=== PATIENT | female | born 1950 | race Caucasian/White ===

== ENCOUNTER → 2016-11-29 | Outpatient (CLI) | payer MEDICARE ==
--- NOTE | 2016-11-29 11:38 | BD ---
EXAMINATION TYPE: MG DEXA axial skeleton. DATE OF EXAM: 11/29/2016 10:26 AM COMPARISON: NONE CLINICAL HISTORY: S32.9XXD FX PARTS OF L/S SPINE AND PELVIS Height: 65.5 Weight: 202 FRAX RISK QUESTIONS: Alcohol (3 or more units per day): NO Family History (Parent hip fracture): YES BUTH NO BREAKS Glucocorticoids (More than 3mos): NO (Ex: prednisone, prednisolone, methylprednisolone, dexamethasone, and hydrocortisone). History of Fracture in Adulthood: YES Secondary Osteoporosis: NO 1. Type 1 Diabetes: NO 2. Hyperthyroidism: NO 3. Menopause before 45: NO 4. Malnutrition: NO 5. Chronic liver disease: FATTY LIVER Rheumatoid Arthritis: NO Current Tobacco Use: NO RISK FACTORS HISTORY OF: Hip Fracture (Right/Left): NO , BUT RT HIP REPLACEMENT Spine Fracture: LUMBAR, WITH SCREWS AND PLATES When: 1998 Surgery to Spine/Hip(right)/ TOTAL RT HIP AND LUMBAR SPINE SURG When: 2013 AND 1998 Other Fractures since Age 50: YES HER PELVIS, COMP FX THORACIC SPINE When: LAST YR AND FEW YRS AGO Family History of Osteoporosis: YES HER MOTHER, BUT NO BROKEN HIP Smoke tobacco: NO Drink Alcohol: RARELY Active: NO, CANNOT Diet low in dairy products/other sources of calcium: YES Postmenopausal woman: YES AT AGE 47 Lost more than 2 inches in height since high school: YES Frequent falls: USING CANE UNSTEADY Adrenal Insufficiency: NO MEDICATIONS: Thyroid Medications: YES Which medication: SYNTHROID How Lon YRS Additional Medications: BP MEDS, CELEXA, CALCIUM AND VIT D Additional History: TOTAL RT HIP, SCREWS AND PLATES IN LUMBAR SPINE....BROKEN PELVIS LAST YR EXAM MEASUREMENTS: Bone mineral densitometry was performed using the [employer] System. LUMBAR SPINE SURG...WITH SCREWS AND PLATES....COMPRESSION FX OF THORACIC AND LUMBAR SPINE Bone mineral density about the R hip (g/cm2): TOTAL HIP REPLACEMENT Bone mineral density about the L hip (g/cm2): 0.991 T Score values are as follows: -----L Neck: -1.8 -----L Total: -0.1 Bone mineral density FIRST BONE DENSITY SCAN FOR HER AT [facility] FRAX %'S: 15.6% CHANCE OF A MAJOR OSTEOPOROTIC FX AND 2.1% CHANCE OF A HIP FX......PROBABILITY OF FX IN 10 YRS TIME IMPRESSION: Osteopenia (T Score between -2.5 and -1 as noted by T score values There is slightly increased risk of fracture and the patient may be considered for treatment. Re-Screen 2-5 years. FOR HER LT HIP NOTE: T-SCORE=SD OF THE YOUNG ADULT MEAN.
== END | disposition home or self-care (01) ==
LOC: RADBDWWP 09:58
PROVIDERS: ATTEND Family Medicine
DX: M85.80 Other specified disorders of bone density and structure, unspecified site (principal); S32.9XXD Fracture of unspecified parts of lumbosacral spine and pelvis, subsequent encounter for fracture with routine healing; X58.XXXD Exposure to other specified factors, subsequent encounter
CPT/HCPCS: 77080

== ENCOUNTER 2017-01-05 07:39 | Day surgery (SDC) | payer MEDICARE ==
--- NOTE | 2016-12-23 19:55 | HP ---
DATE OF ADMISSION: 01/05/2017 CHIEF COMPLAINT: Chronic abdominal wound. HISTORY OF PRESENT ILLNESS: The patient is a 66-year-old female who is known to our service. She underwent a subtotal colectomy in January of 2016. Postoperatively the patient had a hematoma along the midline incision. This required incision and drainage. The patient unfortunately since that time has been dealing with a wound that has been very slow to heal. She was recently seen in the wound care center by Dr. Alcala. He and I have discussed her case and decided to proceed with excision/exploration of the wound with attempts at primary closure. PAST MEDICAL HISTORY: 1. Colonic polyposis. 2. Hyperlipidemia. 3. Hypertension. 4. Obesity. 5. Arthritis. 6. CVA. PAST SURGICAL HISTORY: 1. Hip. 2. Ulcer. 3. Back. 4. Rotator cuff. 5. Hysterectomy. 6. Colectomy. MEDICATIONS: See list. ALLERGIES: 1. PENICILLIN. 2. DEMEROL. 3. BETADINE SCRUB. PHYSICAL EXAM: HEENT is normocephalic. CHEST: No deformities. ABDOMEN: Soft, nontender, nondistended. Midline wound measuring 6 x 6 mm with a depth of 14 mm in the lower midline, minimally tender. EXTREMITIES: Without edema. IMPRESSION: A 66-year-old female with midline abdominal wound. PLAN: Will proceed with excision of abdominal wall wound and primary closure on 01/05. Risks of bleeding, infection, recurrence, poor healing, possible need for opening of the wound with subsequent wound V.A.C. placement were discussed. The patient understands and wishes to proceed.
[2017-01-03 12:38] VITALS: BMI 30.4
[~2017-01-05 07:39] MED LIST: HEPARIN SODIUM,PORCINE 5,000 UNIT/ML 1 ML VIAL SQ ONE; LACTATED RINGERS 1,000 ML IV SCH; LIDOCAINE 1% 20 ML VIAL (10MG/ML) FOR IV START INTRADERMA PRN; ONDANSETRON 4 MG/2 ML VIAL IVP ONE; Pre Op ABX Message 1 EACH MISC MISCELLANE ONE; fentaNYL (PF) 50 MCG/ML 2 ML AMP IV PRN
[2017-01-05 08:42] VITALS: RESP 16; TEMP 98.4
[2017-01-05] MEDS ORDERED: fentaNYL (PF) 50 MCG/ML 2 ML AMP ONE (10:22)
[2017-01-05] MEDS ORDERED: SUCCINYLCHOLINE CHLORIDE 100 MG/5 ML SYR IV ONE (10:22)
[2017-01-05] MEDS ORDERED: GLYCOPYRROLATE 0.2 MG/ML 2 ML VIAL ONE (10:22)
[2017-01-05] MEDS ORDERED: MIDAZOLAM 2 MG/2 ML VIAL ONE (10:22)
[2017-01-05] MEDS ORDERED: KETAMINE 10 MG/ML 20 ML VIAL ONE (10:22)
[2017-01-05] MEDS ORDERED: SODIUM CHLORIDE 0.9% 50 ML with ceFAZolin 2,000 MG IV ONE ×2 (10:34)
[2017-01-05] MEDS ORDERED: BUPIVACAIN-EPI 0.25%-1:200,000 30 ML VIAL SQ ONE (10:40)
[2017-01-05] MEDS ORDERED: NALOXONE 0.4 MG/ML 1 ML VIAL IV PRN (10:52)
--- NOTE | 2017-01-05 10:57 | P.PCN ---
Date of Procedure: 01/05/17 Preoperative Diagnosis: Postoperative Diagnosis: Procedure(s) Performed: PREOPERATIVE DIAGNOSIS: Abdominal wall wound POSTOPERATIVE DIAGNOSIS: Same PROCEDURE: Excision SURGEON: Desmond EBL: Rob ANESTHESIA: Mac COMPLICATIONS: None OPERATIVE PROCEDURE: Patient was placed on the operative table in the supine position. The patient's abdomen was prepped and draped in the usual sterile fashion. An elliptical incision was made around the wound in the lower abdomen. This wound measured 7 x 7 mm with a depth of 1.5 cm. The excision through the subcutaneous fat took place sharply and I had a probe within the wound itself so I was able to drum maker the depth of the wound that way. They scar tissue beneath the wound was excised. I was not able to visualize any foreign bodies. The area was irrigated. The subcutaneous fat was closed using 3-0 Vicryl sutures and the skin was closed using 4-0 Monocryl sutures. Dermabond was then applied. DISPOSITION: Stable to recovery room Implants: Indications for Procedure: Operative Findings: Description of Procedure:
[2017-01-05 11:33] VITALS: BP 124/69; PULSE 65
== END 2017-01-05 13:51 | disposition home or self-care (01) ==
LOC: OR 07:39
PROVIDERS: ATTEND Surgery
DX: T81.89XA Other complications of procedures, not elsewhere classified, initial encounter (principal); E78.5 Hyperlipidemia, unspecified; I10 Essential (primary) hypertension; E66.9 Obesity, unspecified; Z68.30 Body mass index [BMI] 30.0-30.9, adult; E07.9 Disorder of thyroid, unspecified; M19.90 Unspecified osteoarthritis, unspecified site; Z86.73 Personal history of transient ischemic attack (TIA), and cerebral infarction without residual deficits; Z90.710 Acquired absence of both cervix and uterus; Z88.5 Allergy status to narcotic agent; Z88.0 Allergy status to penicillin; Z88.8 Allergy status to other drugs, medicaments and biological substances; Y83.8 Other surgical procedures as the cause of abnormal reaction of the patient, or of later complication, without mention of misadventure at the time of the procedure
CPT/HCPCS: 11042; 88304; J2250; J1644; J2405; J3010; J0690; J0330

== ENCOUNTER → 2017-07-28 | Outpatient (CLI) | payer MEDICARE ==
--- NOTE | 2017-07-29 11:18 | MM ---
Reason for exam: screening (asymptomatic). Last mammogram was performed 1 year and 2 months ago. History: Patient is postmenopausal and is nulliparous. Family history of breast cancer in maternal aunt. Benign MG stereo VAD BX LT of the left breast, March 14, 2015. Took hormonal contraceptives for 7 years. Took estrogen for 3 years. Took progesterone for 3 years. Physical Findings: A clinical breast exam by your physician is recommended on an annual basis and results should be correlated with mammographic findings. MG Screening Mammo w CAD Bilateral CC and MLO view(s) were taken. Prior study comparison: June 07, 2016, bilateral MG diagnostic mammo w CAD [facility]. September 04, 2015, left breast MG 3d diag mammo w/cad LT. The breast tissue is heterogeneously dense. This may lower the sensitivity of mammography. Stable benign calcifications. No significant changes when compared with prior studies. ASSESSMENT: Benign, BI-RAD 2 RECOMMENDATION: Routine screening mammogram of both breasts in 1 year.
== END | disposition home or self-care (01) ==
LOC: RADMAMWWP 13:17
PROVIDERS: ATTEND Family Medicine
DX: Z12.31 Encounter for screening mammogram for malignant neoplasm of breast (principal)
CPT/HCPCS: 77067

== ENCOUNTER → 2018-06-12 | Outpatient (CLI) | payer MEDICARE ==
[2018-06-12 10:43] LABS: HCT 33.7 % (34.0-46.0); HGB 10.8 gm/dL (11.4-16.0); Hypochromasia Slight; MCH 26.8 pg (25.0-35.0); MCV 83.7 fL (80.0-100.0); Mean Platelet Volume 6.5; Platelet Count 241 k/uL (150-450); RBC 4.03 m/uL (3.80-5.40); WBC 6.3 k/uL (3.8-10.6)
[2018-06-12 10:55] LABS: Anion Gap 8 mmol/L; Blood Urea Nitrogen 19 mg/dL (7-17); Carbon Dioxide 29 mmol/L (22-30); Chloride 104 mmol/L (98-107); Glucose 97 mg/dL (74-99); Potassium 5.2 mmol/L (3.5-5.1); Sodium 141 mmol/L (137-145)
== END | disposition home or self-care (01) ==
LOC: LABPAT 09:39
PROVIDERS: ATTEND Internal Medicine Interventional Cardiology
DX: Z01.812 Encounter for preprocedural laboratory examination (principal); E78.2 Mixed hyperlipidemia; I10 Essential (primary) hypertension; R06.02 Shortness of breath
CPT/HCPCS: 36415; 80051; 82565; 82947; 83735; 84520; 85027

== ENCOUNTER 2018-06-20 07:56 | Day surgery (SDC) | payer MEDICARE ==
[2018-06-12 14:46] VITALS: BMI 33.3
[~2018-06-20 07:56] MED LIST changes: +ALPRAZolam 0.25 MG TAB PO PRN; +ALPRAZolam 0.5 MG TAB PO PRN; +ASPIRIN 325 MG TAB PO ONE; +ATORVASTATIN 80 MG TAB PO ONE; -HEPARIN SODIUM,PORCINE 5,000 UNIT/ML 1 ML VIAL SQ ONE; -LACTATED RINGERS 1,000 ML IV SCH; -LIDOCAINE 1% 20 ML VIAL (10MG/ML) FOR IV START INTRADERMA PRN; +NITROGLYCERIN SL TABS 0.4 MG TAB SUBLINGUAL PRN; -ONDANSETRON 4 MG/2 ML VIAL IVP ONE; -Pre Op ABX Message 1 EACH MISC MISCELLANE ONE; +SODIUM CHLORIDE 0.9% 1,000 ML in EMPTY BAG 1 BAG IV ONE; -fentaNYL (PF) 50 MCG/ML 2 ML AMP IV PRN
[2018-06-20 08:56] VITALS: TEMP 98.8
[2018-06-20] MEDS ORDERED: LIDOCAINE 1% INJ 10MG/ML (20 ML MDV) ONE (09:40)
[2018-06-20] MEDS ORDERED: fentaNYL (PF) 50 MCG/ML 2 ML AMP ONE (09:42)
[2018-06-20] MEDS ORDERED: fentaNYL (PF) 50 MCG/ML 2 ML AMP IV ONE (09:51)
[2018-06-20] MEDS ORDERED: MIDAZOLAM 2 MG/2 ML VIAL ONE (09:55)
[2018-06-20] MEDS ORDERED: LIDOCAINE 1% INJ 10MG/ML (20 ML MDV) SQ ONE ×2 (09:55→09:57)
[2018-06-20] MEDS ORDERED: MIDAZOLAM 2 MG/2 ML VIAL IV ONE (09:56)
[2018-06-20 10:19] LABS: O2 Sat Blood Gas 88.2 %
[2018-06-20 10:21] LABS: O2 Sat Blood Gas 64.4 %
[2018-06-20 10:24] LABS: O2 Sat Blood Gas 61.8 %
[2018-06-20] MEDS ORDERED: RX INFO: IV CONTRAST WAS GIVEN 1 EACH MISC MISCELLANE PRN (10:25)
[2018-06-20] MEDS ORDERED: ALPRAZolam 0.25 MG TAB PO PRN (10:26)
[2018-06-20] MEDS ORDERED: SODIUM CHLORIDE 0.9% 1,000 ML IV SCH (10:30)
--- NOTE | 2018-06-20 10:56 | CC ---
CARDIAC CATHETERIZATION REPORT INDICATION: Evaluation of right-sided pressure. Mrs. Mittal is a 68-year-old female with known history of mild to moderate coronary artery disease who has been complaining of progressive dyspnea on exertion, was found to have evidence of pulmonary hypertension, was evaluated by Dr. Grace and to further assess her status. Recommendation made regarding a right heart catheterization. The procedures, risks and complications were discussed with the patient who is in full understanding and agreement. PROCEDURE: Patient was brought to the cath lab nurse in a fasting semi-sedated state after receiving fentanyl and Benadryl and achieving moderate conscious sedated state using Xylocaine anesthesia and a Seldinger, an 8-Bulgarian sheath was introduced in the right femoral vein. Right heart catheterization was performed using [place]-Chance catheter, multiple blood pressures and samples were obtained. Cardiac output by thermodilution was calculated. Following that, a sample from the right femoral artery was performed. Following that, catheter and sheath were removed. Hemostasis was obtained with compression of the right groin. There was no immediate complication. Patient is returned to her room in stable condition. FINDINGS: HEMODYNAMICS: Pulmonary artery systolic pressure of 46, a diastolic of 21 with a mean of 28 mmHg. Pulmonary capillary wedge pressure A-wave of 16, V-wave 15 with a mean of 14 mmHg. A-wave of 16, V-wave 14 with a mean of 13 mmHg, right ventricular systolic pressure of 44 and diastolic of 14 mmHg. Pulmonary artery saturation of 64%, right atrial saturation of 62%, femoral artery saturation of 88%. Cardiac output by thermodilution of 6.7 L/minute and by Brittany 5.7 L/minute. IMPRESSION: Mild pulmonary hypertension. RECOMMENDATION: Patient will be followed with her pet care technician for further evaluation and assessment. DURATION OF PROCEDURE: 18 minutes. MMODL / IJN: [id number] /
[2018-06-20 12:21] VITALS: PULSE 52
[2018-06-20 12:58] VITALS: BP 117/56; RESP 18
[2018-06-20] MEDS ORDERED: LOVASTATIN 10 MG PO SCH (21:00)
[2018-06-20] MEDS ORDERED: BECLOMETHASONE DIP 80 MCG/PUFF INHALER INHALATION SCH (21:00)
[2018-06-20] MEDS ORDERED: MONTELUKAST 10 MG TAB PO SCH (21:00)
[2018-06-21] MEDS ORDERED: GABAPENTIN 300 MG PO SCH (08:00)
[2018-06-21] MEDS ORDERED: NON-FORMULARY DRUG (Acetaminophen [Tylenol Arthritis] 650 MG) PO SCH (09:00)
[2018-06-21] MEDS ORDERED: NON-FORMULARY DRUG (Aspirin [Adult Low Dose Aspirin Ec] 81 MG) PO SCH (09:00)
[2018-06-21] MEDS ORDERED: OMEPRAZOLE 10 MG PO SCH (09:00)
[2018-06-21] MEDS ORDERED: NON-FORMULARY DRUG (Citalopram Hydrobromide [Citalopram Hbr] 40 MG) PO SCH (09:00)
[2018-06-21] MEDS ORDERED: LISINOPRIL 10 MG TAB PO SCH (09:00)
[2018-06-21] MEDS ORDERED: NON-FORMULARY DRUG (Cholecalciferol (Vitamin D3) [Vitamin D3] 2,000 UNIT) PO SCH (09:00)
[2018-06-21] MEDS ORDERED: LEVOTHYROXINE 88 MCG TAB PO SCH (09:00)
[2018-06-21] MEDS ORDERED: NON-FORMULARY DRUG (Calcium Carbonate [Calcium] 600 MG) PO SCH (09:00)
== END 2018-06-20 14:27 | disposition home or self-care (01) ==
LOC: CATHCVL 07:56
PROVIDERS: ATTEND Internal Medicine Interventional Cardiology
DX: I27.20 Pulmonary hypertension, unspecified (principal); I25.10 Atherosclerotic heart disease of native coronary artery without angina pectoris; I10 Essential (primary) hypertension; E78.2 Mixed hyperlipidemia; Z82.49 Family history of ischemic heart disease and other diseases of the circulatory system; Z79.1 Long term (current) use of non-steroidal anti-inflammatories (NSAID); Z79.890 Hormone replacement therapy; Z79.899 Other long term (current) drug therapy; Z88.5 Allergy status to narcotic agent; Z88.0 Allergy status to penicillin; Z91.048 Other nonmedicinal substance allergy status; Z91.09 Other allergy status, other than to drugs and biological substances
CPT/HCPCS: 93451; 85018; 82810; C1769 ×2; C1894; J2250; J2001; J3010

== ENCOUNTER 2018-07-03 12:12 | Day surgery (SDC) | payer MEDICARE ==
[2018-06-29 14:09] VITALS: BMI 31.7
[~2018-07-03 12:12] MED LIST changes: -ALPRAZolam 0.25 MG TAB PO PRN; -ALPRAZolam 0.5 MG TAB PO PRN; -ASPIRIN 325 MG TAB PO ONE; -ATORVASTATIN 80 MG TAB PO ONE; +DEXAMETHASONE SOD PHOSPHATE 10 MG/ML 1 ML VIAL IV ONE; +HYDROmorphone 0.5 MG/0.5 ML SYRINGE IVP PRN; +LACTATED RINGERS 1,000 ML IV SCH; +LIDOCAINE 1% 20 ML VIAL (10MG/ML) FOR IV START INTRADERMA PRN; +MIDAZOLAM 2 MG/2 ML VIAL IV PRN; -NITROGLYCERIN SL TABS 0.4 MG TAB SUBLINGUAL PRN; +ONDANSETRON 4 MG/2 ML VIAL IVP ONE; +Pre Op ABX Message 1 EACH MISC MISCELLANE ONE; +SCOPOLAMINE 1.5MG/72HR PATCH TRANSDERM ONE; -SODIUM CHLORIDE 0.9% 1,000 ML in EMPTY BAG 1 BAG IV ONE
[2018-07-03 12:39] VITALS: TEMP 98.2
[2018-07-03] MEDS ORDERED: PROPOFOL 10 MG/ML 20 ML VIAL IV ONE (13:39)
[2018-07-03] MEDS ORDERED: MIDAZOLAM 2 MG/2 ML VIAL ONE (13:39)
[2018-07-03] MEDS ORDERED: ROPIVACAINE 5 MG/ML 30 ML VIAL MISCELLANE ONE ×2 (13:55)
[2018-07-03] MEDS ORDERED: LIDOCAINE 2% INJ 20 MG/ML SQ ONE ×2 (13:55)
[2018-07-03 14:23] VITALS: RESP 12
[2018-07-03 14:24] VITALS: BP 129/61; PULSE 51
--- NOTE | 2018-07-03 16:51 | OP ---
OPERATIVE REPORT SURGERY DATE: 07/03/2018 PREOP DIAGNOSIS: Right ring trigger finger. FINAL DIAGNOSIS: Right ring trigger finger. PROCEDURE PERFORMED: Right ring trigger finger release. GROSS PATHOLOGY: This 68-year-old woman has a history of prior right ring trigger finger with recurrence. Intraoperatively, the A1 nataliya had reformed. There was minimal fraying of the tendon which otherwise was intact. There were no signs of adhesions at the completion of the procedure. PROCEDURE IN DETAIL: A transverse incision was made in the proximal skin crease of the middle finger. Blunt dissection was taken through the subcutaneous tissue to identify the neurovascular bundles. They were kept in view and gently retracted out of harm's way while a longitudinal release of the A1 nataliya was performed. The flexor pollicis longus was examined and slight swelling was noted but the tendon was intact. The tendon was gently retracted from the wound to ensure no adhesion. The wound was then thoroughly irrigated, tourniquet released. Hemostasis was acquired and the skin was closed with 5-0 nylon suture. Soft bulky dressing applied. The patient was taken to the recovery room in satisfactory condition. MMODL / IJN: [id number] /
== END 2018-07-03 14:59 | disposition home or self-care (01) ==
LOC: OR 12:12
PROVIDERS: ATTEND Orthopaedic Surgery Hand Surgery
DX: M65.341 Trigger finger, right ring finger (principal); I10 Essential (primary) hypertension; L40.9 Psoriasis, unspecified; F32.9 Major depressive disorder, single episode, unspecified; E78.5 Hyperlipidemia, unspecified; K21.9 Gastro-esophageal reflux disease without esophagitis; E07.9 Disorder of thyroid, unspecified; G47.33 Obstructive sleep apnea (adult) (pediatric); H91.90 Unspecified hearing loss, unspecified ear; Z86.73 Personal history of transient ischemic attack (TIA), and cerebral infarction without residual deficits; Z79.899 Other long term (current) drug therapy; Z88.0 Allergy status to penicillin; Z88.5 Allergy status to narcotic agent; Z88.8 Allergy status to other drugs, medicaments and biological substances; Z82.49 Family history of ischemic heart disease and other diseases of the circulatory system; Z86.718 Personal history of other venous thrombosis and embolism; Z79.82 Long term (current) use of aspirin; Z79.51 Long term (current) use of inhaled steroids; Z79.890 Hormone replacement therapy
CPT/HCPCS: 26055; J2001; J2250; J1100; J2405; J2795; J2704

== ENCOUNTER → 2018-08-07 | Outpatient (CLI) | payer MEDICARE ==
--- NOTE | 2018-08-07 13:03 | XR ---
EXAMINATION TYPE: XR cervical spine comp DATE OF EXAM: 08/07/2018 TECHNIQUE: Frontal, lateral, oblique, swimmers, and open mouth view of the cervical spine are obtaine d. HISTORY: C56.1 Ovarian CA; C20 Rectal CA COMPARISON: None FINDINGS: The cervical spine is visualized in its entirety from C1 thru the top of T1 level, it is w ithout evidence of acute fracture or dislocation. The pre-vertebral soft tissue appears within stuart l limits. The C1-C2 articulation is within normal limits on the open mouth view. There is reversal usual cervical lordosis. Grade 1 anterolisthesis is seen of C4 on C5. Multilevel in tervertebral disc space narrowing, anterior osteophytes, endplate sclerosis and uncovertebral hypertr ophy are seen. Minimal multilevel neural foraminal narrowing is present throughout the cervical spine from C3 through C7 bilaterally. Incidentally noted atherosclerosis of the carotid arteries. IMPRESSION: 1. No acute fracture is seen in the cervical spine. 2. Reversal usual cervical lordosis, likely on a degenerative basis with moderate multilevel degenera tive disc disease of the cervical spine tilting and minimal radiographic neural foraminal narrowing f rom C3 through C7 bilaterally. Grade 1 anterolisthesis of C4 on C5 is also likely degenerative in lucio ure. 3. Incidental note of atherosclerosis of the carotid arteries. Carotid ultrasound could be performed for further evaluation.
--- NOTE | 2018-08-12 09:08 | MM ---
Reason for exam: screening (asymptomatic). Last mammogram was performed 1 year ago. History: Patient is postmenopausal and is nulliparous. Family history of breast cancer in maternal aunt. Benign MG stereo VAD BX LT of the left breast, March 14, 2015. Took hormonal contraceptives for 7 years. Took estrogen for 3 years. Took progesterone for 3 years. MG Screening Mammo w CAD Bilateral CC and MLO view(s) were taken. Prior study comparison: July 28, 2017, bilateral MG screening mammo w CAD. June 07, 2016, bilateral MG diagnostic mammo w CAD [facility]. There are scattered fibroglandular densities. There are benign-appearing bilateral breast calcifications. No suspicious abnormality. Left breast biopsy marker is noted. ASSESSMENT: Benign, BI-RAD 2 RECOMMENDATION: Routine screening mammogram of both breasts in 1 year.
== END ==
LOC: RADMAMWWP 11:48
PROVIDERS: ATTEND Family Medicine
DX: Z12.31 Encounter for screening mammogram for malignant neoplasm of breast (principal); M43.12 Spondylolisthesis, cervical region; M40.40 Postural lordosis, site unspecified
CPT/HCPCS: 72050; 77067

== ENCOUNTER → 2019-07-02 | Outpatient (CLI) | payer MEDICARE ==
[2019-07-02 14:41] LABS: Basophils % (A) 1 %; Eosinophils # (A) 0.1 k/uL (0-0.7); Eosinophils % (A) 2 %; HGB 11.8 gm/dL (11.4-16.0); Lymphocytes # (A) 1.5 k/uL (1.0-4.8); Lymphocytes % (A) 22 %; MCH 31.4 pg (25.0-35.0); MCHC 32.7 g/dL (31.0-37.0); MCV 96.1 fL (80.0-100.0); Mean Platelet Volume 7.2; Monocytes # (A) 0.6 k/uL (0-1.0); Monocytes % (A) 8 %; Neutrophils # (A) 4.5 k/uL (1.3-7.7); Neutrophils % (A) 66 %; Platelet Count 214 k/uL (150-450); RBC 3.75 m/uL (3.80-5.40); WBC 6.8 k/uL (3.8-10.6)
[2019-07-02 14:45] LABS: African American GFR (CKD) >90 (>60 ml/min/1.73 sqM); Albumin 4.2 g/dL (3.5-5.0); Anion Gap 7 mmol/L; Blood Urea Nitrogen 17 mg/dL (7-17); Calcium 9.3 mg/dL (8.4-10.2); Carbon Dioxide 25 mmol/L (22-30); Chloride 111 mmol/L (98-107); Glucose 79 mg/dL (74-99); Non-African American GFR(CKD) >90 (>60 ml/min/1.73 sqM); Potassium 4.9 mmol/L (3.5-5.1); Sodium 143 mmol/L (137-145)
[2019-07-02 14:46] LABS: Appearance,Urine Cloudy (Clear); Bilirubin,Urine Negative (Negative); Blood,Urine Moderate (Negative); Color,Urine Yellow; Glucose,Urine (UA) Negative (Negative); Ketones,Urine Negative (Negative); Leukocyte Esterase,Urine Moderate (Negative); Mucus,Urine Rare /hpf; Nitrite,Urine Negative (Negative); PH, Urine 5.5 (5.0-8.0); Protein,Urine Trace (Negative); RBC,Urine 46 /hpf (0-5); Specific Gravity,Urine 1.024 (1.001-1.035); Squamous Epithelial Cell,Urine 3 /hpf (0-4); Urobilinogen,Urine <2.0 mg/dL (<2.0); WBC,Urine 35 /hpf (0-5)
[2019-07-02 14:52] LABS: INR 0.9 (<1.2); Partial Thromboplastin Time 22.6 sec (22.0-30.0); Prothrombin Time 10.1 sec (9.0-12.0)
--- NOTE | 2019-07-02 15:06 | XR ---
EXAMINATION TYPE: XR chest 2V DATE OF EXAM: 07/02/2019 COMPARISON: NONE HISTORY: Presurgical evaluation. History of COPD. TECHNIQUE: Frontal and lateral views of the chest are obtained. FINDINGS: There is no focal air space opacity, pleural effusion, or pneumothorax seen. Platelike ate lectasis of the left midlung. The cardiac silhouette size is upper limits of normal. Surgical clips a re seen in the gastroesophageal junction. The osseous structures are intact. IMPRESSION: 1. Left midlung platelike subsegmental atelectasis. 2. Postsurgical changes at the gastroesophageal junction. 3. Cardiomediastinal silhouette is upper limits of normal in size.
== END | disposition home or self-care (01) ==
LOC: LABPAT 13:40
PROVIDERS: ATTEND Orthopaedic Surgery Orthopaedic Surgery of the Spine
DX: Z01.812 Encounter for preprocedural laboratory examination (principal); Z01.818 Encounter for other preprocedural examination; M47.812 Spondylosis without myelopathy or radiculopathy, cervical region; Z79.01 Long term (current) use of anticoagulants
CPT/HCPCS: 36415; 71046; 80048; 81001; 82040; 85025; 85610; 85730; 86850; 86900; 86901; 93005

== ENCOUNTER → 2019-07-06 | Outpatient (CLI) | payer MEDICARE ==
[2019-07-06 13:24] LABS: Appearance,Urine Clear (Clear); Bilirubin,Urine Negative (Negative); Blood,Urine Small (Negative); Color,Urine Yellow; Glucose,Urine (UA) Negative (Negative); Hyaline Casts,Urine 1 /lpf (0-2); Ketones,Urine Negative (Negative); Leukocyte Esterase,Urine Moderate (Negative); Nitrite,Urine Negative (Negative); PH, Urine 5.5 (5.0-8.0); Protein,Urine Negative (Negative); RBC,Urine 5 /hpf (0-5); Specific Gravity,Urine 1.008 (1.001-1.035); Squamous Epithelial Cell,Urine <1 /hpf (0-4); Urobilinogen,Urine <2.0 mg/dL (<2.0); WBC,Urine 15 /hpf (0-5)
== END | disposition home or self-care (01) ==
LOC: LABWHC1 10:15
PROVIDERS: ATTEND Family Medicine
DX: R31.9 Hematuria, unspecified (principal)
CPT/HCPCS: 81001

== ENCOUNTER → 2020-08-27 | Outpatient (CLI) | payer MEDICARE ==
--- NOTE | 2020-08-27 15:54 | CT ---
EXAMINATION TYPE: CT wrist LT wo con DATE OF EXAM: 08/27/2020 COMPARISON: None HISTORY: Left wrist pain after injury CT DLP: [address] of the left wrist with reconstruction imaging. TECHNIQUE: Unenhanced CT of the left wrist was performed with bone and soft tissue window settings roach bmitted in the axial coronal and sagittal planes. At a separate workstation 3-D TR imaging was obtai ham. FINDINGS: There is no evidence for fracture or dislocation. Radiocarpal and intercarpal joint space n arrowing noted. There is also moderate degenerative change at the first carpal metacarpal joint space with bony spurring and fragmentation seen. Soft tissues are grossly intact. IMPRESSION: 1. No evidence for acute fracture or dislocation at this time.
== END | disposition home or self-care (01) ==
LOC: RADCTMAIN 15:05
PROVIDERS: ATTEND Family Medicine
DX: M25.532 Pain in left wrist (principal)

== ENCOUNTER → 2020-10-27 | Outpatient (CLI) | payer MEDICARE ==
[2020-10-27 11:50] LABS: ALT 15 U/L (4-34); AST 30 U/L (14-36); African American GFR (CKD) >90 (>60 ml/min/1.73 sqM); Albumin 4.2 g/dL (3.5-5.0); Alkaline Phosphatase 40 U/L (38-126); Anion Gap 4 mmol/L; Blood Urea Nitrogen 17 mg/dL (7-17); Calcium 9.2 mg/dL (8.4-10.2); Carbon Dioxide 31 mmol/L (22-30); Chloride 104 mmol/L (98-107); Glucose 107 mg/dL (74-99); Non-African American GFR(CKD) >90 (>60 ml/min/1.73 sqM); Potassium 4.5 mmol/L (3.5-5.1); Sodium 139 mmol/L (137-145); Total Bilirubin 0.4 mg/dL (0.2-1.3); Total Protein 6.7 g/dL (6.3-8.2)
[2020-10-27 11:56] LABS: HCT 36.4 % (34.0-46.0); HGB 12.6 gm/dL (11.4-16.0); MCH 32.7 pg (25.0-35.0); MCHC 34.6 g/dL (31.0-37.0); MCV 94.4 fL (80.0-100.0); Platelet Count 177 k/uL (150-450); RBC 3.86 m/uL (3.80-5.40); RDW 12.7 % (11.5-15.5); WBC 5.6 k/uL (3.8-10.6)
== END | disposition home or self-care (01) ==
LOC: LABPAT 10:17
PROVIDERS: ATTEND Podiatrist Foot & Ankle Surgery
DX: Z01.818 Encounter for other preprocedural examination (principal)
CPT/HCPCS: 80053; 85027

== ENCOUNTER → 2020-11-19 | Day surgery (SDC) | payer MEDICARE ==
[2020-11-17 14:13] VITALS: BMI 26.6
[~2020-11-19] MED LIST changes: +BUPIVACAINE (PF) 0.5% 30 ML VIAL SQ ONE; -DEXAMETHASONE SOD PHOSPHATE 10 MG/ML 1 ML VIAL IV ONE; +DEXAMETHASONE SOD PHOSPHATE 4 MG/ML 1 ML VIAL IVP ONE; -HYDROmorphone 0.5 MG/0.5 ML SYRINGE IVP PRN; -LACTATED RINGERS 1,000 ML IV SCH; +LIDOCAINE 1% (10MG/ML) FOR IV START INTRADERMA PRN; -LIDOCAINE 1% 20 ML VIAL (10MG/ML) FOR IV START INTRADERMA PRN; -MIDAZOLAM 2 MG/2 ML VIAL IV PRN; +MIDAZOLAM 2 MG/2 ML VIAL ONE; -ONDANSETRON 4 MG/2 ML VIAL IVP ONE; +ONDANSETRON 4 MG/2 ML VIAL ONE; +PROPOFOL 10 MG/ML 20 ML VIAL IV ONE; -Pre Op ABX Message 1 EACH MISC MISCELLANE ONE; -SCOPOLAMINE 1.5MG/72HR PATCH TRANSDERM ONE; +fentaNYL (PF) 50 MCG/ML 2 ML AMP ONE
[2020-11-19 12:46] VITALS: TEMP 97.5
[2020-11-19] MEDS: LACTATED RINGERS 1,000 ML IV SCH ×2 (12:59→13:13)
[2020-11-19 14:52] VITALS: RESP 17
--- NOTE | 2020-11-19 14:55 | P.PCN ---
Date of Procedure: 11/19/20 Preoperative Diagnosis: Hallux abductovalgus deformity right foot and hammer digit deformity second toe right foot Postoperative Diagnosis: Same Procedure(s) Performed: Modified Thakkar Herb bunionectomy right foot and arthrodesis second toe right foot Anesthesia: MAC Surgeon: Juan Segura Operative Findings: Unremarkable
[2020-11-19 15:25] VITALS: BP 173/76; PULSE 86
--- NOTE | 2020-11-19 21:05 | OP ---
OPERATIVE REPORT DATE OF SURGERY: 11/19/2020 PREOPERATIVE DIAGNOSES: 1. Hallux abducto valgus deformity, right foot. 2. Hammer digit deformity, second toe, right foot. POSTOPERATIVE DIAGNOSES: 1. Hallux abducto valgus deformity, right foot. 2. Hammer digit deformity, second toe, right foot. OPERATION: 1. Modified Thakkar-Herb bunionectomy, right foot. 2. Arthrodesis procedure, second toe, right foot. SURGEON: Juan Segura DPM. ANESTHESIA: IV sedation supplemented with local anesthesia, i.e., approximately 15 mL of 0.25% plain Marcaine. DESCRIPTION OF PROCEDURE: On the date of surgery, the patient was taken to the operating room in good condition, placed on the operating table in supine position, where an IV was started. Adequate IV anesthetic agents were utilized. Anesthesia was then further supplemented with approximately 15 mL of 0.25% plain Marcaine given in a Kulkarni block to the first ray complex and a digital block to the second toe of the right foot. The patient's right foot and ankle were then prepped and draped in the usual aseptic manner, and over heavy Webril padding an ankle tourniquet was placed above the malleoli of the patient's right ankle. The patient's right foot and ankle were then elevated and exsanguinated of blood utilizing an Esmarch bandage, and after approximately one minute's period of time, the ankle tourniquet was inflated to approximately 275 mmHg. At this time, attention was directed to the dorsal aspect of the first metatarsophalangeal joint, where an approximately 6 cm dorsal linear incision was made. The incision was deepened via sharp dissection down through the level of subcutaneous tissue layers. All neurovascular structures encountered were identified, isolated and were retracted, and any bleeding vessels were clamped and electrocauterized. Throughout the surgical procedure, copious amounts of sterile saline solution were used to irrigate the surgical site. Dissection was then carried deep down to the level of the capsule and periosteal structures overlying the first metatarsophalangeal joint. These were incised utilizing an inverted L incision and underscored and retracted from the underlying bone. The hyperostosis present on the medial side of the first metatarsal head was then resected flush in line with the shaft of the first metatarsal and removed in toto from the surgical site. Dissection was then carried deep down to the level of the capsular and periosteal structures overlying the proximal phalanx, and these were incised in line with the original skin incision. They were underscored and retracted from the underlying bone. Utilizing an oscillating bone saw, a wedge osteotomy was performed in a dorsal to plantar manner with the apex of the wedge being directed laterally, though care was taken not to disrupt the lateral cortex. The base of the wedge was placed on the medial side. The encompassed wedge of bone removed measured approximately 3 mm at its widest extent medially. Two surgical drill holes were then fashioned in such a manner that they met within the osteotomy, one just distal and one just proximal to the osteotomy itself. Utilizing double-strength 28- gauge monofilament stainless steel wire, the osteotomy was fixated and anatomically closed in a position. The hallux upon completion of this was seen to maintain a rectus position. Redundant capsule was then removed from the medial side of the first metatarsophalangeal joint and the capsular and periosteal structures were then coapted and maintained utilizing 2-0 Vicryl simple interrupted suture. Subcutaneous tissue layers were then coapted and maintained utilizing 3-0 Vicryl simple interrupted suture. The skin was closed utilizing 4-0 nylon continuous locked suture. At this time, attention was directed to the dorsal aspect of the second digit of the right foot, where an approximately 2.5 cm dorsal linear incision was made. The incision was deepened via sharp dissection down through the level of subcutaneous tissue layers. Neurovascular structures were retracted medially and laterally and dissection was carried deep to the level of the proximal interphalangeal joint. The extensor digitorum longus tendon was then severed in a transverse manner at the level of the proximal interphalangeal joint and was underscored and retracted both proximally and distally. The medial side of the head of the proximal phalanx was then resected, as was the distal aspect of the proximal phalanx. A 0.045 K-wire was then driven distally into the middle and distal phalanx and exited the digit distally and retrograded back into the proximal phalanx. Upon completion of this, the second digit was seen to maintain a rectus position. Throughout the surgical procedure, copious amounts of sterile saline solution were used to irrigate the surgical site. The ends of the extensor digitorum longus tendon to the second toe were then coaptated and maintained utilizing 3-0 Vicryl simple interrupted suture and the skin was closed utilizing 4-0 nylon simple interrupted suture. The surgical sites were then covered with Adaptic, Kerlix, fluffs, 4-inch Conform and 4-inch Coban. The ankle tourniquet to the patient's right foot was deflated and adequate hemostatic return was seen in all digits of the patient's right foot, specifically the hallux and the second toe. The patient tolerated these surgeries and the anesthesia well, and was taken to the recovery room in good postoperative condition. MMBARAKL / IJN: [id number] /
== END ==
LOC: OR 11:57
PROVIDERS: ATTEND Podiatrist Foot & Ankle Surgery
DX: M20.11 Hallux valgus (acquired), right foot (principal); M20.41 Other hammer toe(s) (acquired), right foot; I25.10 Atherosclerotic heart disease of native coronary artery without angina pectoris; I10 Essential (primary) hypertension; E78.2 Mixed hyperlipidemia; L40.9 Psoriasis, unspecified; G47.33 Obstructive sleep apnea (adult) (pediatric); E07.9 Disorder of thyroid, unspecified; Z99.89 Dependence on other enabling machines and devices; L40.50 Arthropathic psoriasis, unspecified; M19.90 Unspecified osteoarthritis, unspecified site; I69.312 Visuospatial deficit and spatial neglect following cerebral infarction; Z96.641 Presence of right artificial hip joint; Z98.890 Other specified postprocedural states; Z87.891 Personal history of nicotine dependence; Z82.49 Family history of ischemic heart disease and other diseases of the circulatory system; Z98.1 Arthrodesis status; Z86.718 Personal history of other venous thrombosis and embolism; Z79.82 Long term (current) use of aspirin; Z79.899 Other long term (current) drug therapy; Z79.890 Hormone replacement therapy; Z79.891 Long term (current) use of opiate analgesic; Z88.0 Allergy status to penicillin; Z88.8 Allergy status to other drugs, medicaments and biological substances; Z91.048 Other nonmedicinal substance allergy status; Z91.09 Other allergy status, other than to drugs and biological substances
CPT/HCPCS: 88304; 88311; 28292; 28285; J2250; J1100; J0690; J2405; J3010; J2704

== ENCOUNTER 2022-11-20 12:15 | Observation (INO) | payer MEDICARE ==
--- NOTE | 2022-11-20 12:54 | ED ---
General Adult HPI - General Chief complaint: Altered Mental Status Stated complaint: Altered mental status Time Seen by Provider: 11/20/22 12:36 Source: patient, family, RN notes reviewed Mode of arrival: ambulatory Limitations: no limitations - History of Present Illness Initial comments: Patient is a pleasant 72-year-old female presenting to the emergency department with concerns for change in mental status. Patient is a poor historian and majority of history comes from patient's older sister. Patient has been wandering recently and leaving the area of residence. Patient has having increase confusion and odd behavior. Patient is losing things. Patient is repetitively putting odd objects in her shirt. Patient recently had urinary tract infection and was hospitalized at [facility]. - Related Data Home Medications Medication Instructions Recorded Confirmed ALPRAZolam [Xanax] 0.125 - 0.25 mg PO DAILY PRN 01/27/16 11/19/20 Citalopram Hydrobromide 40 mg PO DAILY 01/27/16 11/19/20 [Citalopram HBr] Gabapentin 300 mg PO 0800 01/27/16 11/19/20 Gabapentin 600 mg PO 1600,2200 01/27/16 11/19/20 Levothyroxine Sodium [Synthroid] 88 mcg PO DAILY 01/27/16 11/19/20 Loratadine 10 mg PO DAILY 01/27/16 11/19/20 Omeprazole 20 mg PO DAILY 01/27/16 11/19/20 Aspirin [Adult Low Dose Aspirin EC] 81 mg PO DAILY 06/12/18 11/19/20 Calcium Carbonate [Calcium] 600 mg PO DAILY 06/12/18 11/19/20 Cholecalciferol (Vitamin D3) 25 mcg PO DAILY 06/12/18 11/19/20 [Vitamin D3] Turmeric Root Extract [Turmeric] 500 mg PO DAILY 06/12/18 11/19/20 Losartan Potassium 50 mg PO QAM 06/29/18 11/19/20 Ferrous Sulfate [Feosol] 325 mg PO DAILY 07/05/19 11/19/20 HYDROcodone/APAP 7.5-325MG [[place] 1 tab PO TID PRN 07/05/19 11/19/20 7.5-325] Loperamide [Imodium] 2 mg PO QID PRN 07/05/19 11/19/20 Atorvastatin [Lipitor] 20 mg PO DAILY 11/17/20 11/19/20 Baclofen [Lioresal] 10 mg PO 1600,2200 11/17/20 11/19/20 Inulin/Chromium Picolinate [Fiber 2 each PO DAILY 11/17/20 11/19/20 Gummies Chew] Magnesium Oxide [Mag-Ox] 400 mg PO HS 11/17/20 11/19/20 Melatonin [Melatonin ER] 10 mg PO HS 11/17/20 11/19/20 Neuriva 2 cap PO HS 11/17/20 11/19/20 lidocaine HCL [Aspercreme] 1 applic TOPICAL DIRECTED PRN 11/17/20 11/19/20 Fluticasone Nasal [place] [Flonase 1 - 2 spr EA NOSTRIL DIRECTED 11/18/20 11/19/20 Nasal [place]] PRN Ipratropium [place] 0.06%Nasal 2 spray EA NOSTRIL BID 11/18/20 11/19/20 [Atrovent Nasal 0.06%] Allergies Allergy/AdvReac Type Severity Reaction Status Date / Time meperidine HCl [From Demerol] Allergy Severe Nausea Verified 11/20/22 12:24 Iodine and Iodide Containing Allergy Rash/Hives Verified 11/20/22 12:24 Produc Penicillins Allergy Rash/Hives Verified 11/20/22 12:24 povidone-iodine Allergy CRUSTING Verified 11/20/22 12:24 [From Betadine] Rash/Hives soap [From Betadine] Allergy CRUSTING Verified 11/20/22 12:24 Rash/Hives albuterol AdvReac Rapid Verified 11/20/22 12:24 Heart Rate lisinopril AdvReac Cough Verified 11/20/22 12:24 Review of Systems ROS Statement: Those systems with pertinent positive or pertinent negative responses have been documented in the HPI. ROS Other: All systems not noted in ROS Statement are negative. Constitutional: Denies: fever Eyes: Denies: eye pain ENT: Denies: ear pain Respiratory: Denies: cough Cardiovascular: Denies: chest pain Endocrine: Denies: fatigue Gastrointestinal: Denies: abdominal pain Genitourinary: Reports: as per HPI Neurological: Reports: as per HPI, confusion. Denies: headache, weakness Past Medical History Past Medical History: CVA/TIA, Deep Vein Thrombosis (DVT), GERD/Reflux, Hearing Disorder / Deafness, Hyperlipidemia, Hypertension, Osteoarthritis (OA), Skin Disorder, Sleep Apnea/CPAP/BIPAP, Thyroid Disorder Additional Past Medical History / Comment(s): PERFORATED ULCER 1982. HAS EULALIA'S DISEASE. (AUTOIMMUNE DX) YEAST IN SKIN FOLDS. INTERSTITIAL CYSTITIS, NERVE STIMULATOR (RT HIP) FOR BLADDER. SHORTNESS OF BREATH EASILY. HX "BLOOD CLOT RT SHOULDER." STROKE 1995, PERIPHERAL VISION RT EYE AFFECTED. HX COLON POLYPS, Fall 06/09 "cracked pelvis", wound -abdomen. HX OF SHINGLES, HAS POST SHINGLES SCALP PAIN, WEARS 02 OCCASIONALLY History of Any Multi-Drug Resistant Organisms: None Reported Past Surgical History: Back Surgery, Bowel Resection, Heart Catheterization, Hysterectomy, Joint Replacement Additional Past Surgical History / Comment(s): TOTAL RT HIP. BLADDER NERVE STIM. ULCER REPAIR. SPINAL FUSION, LAMINECTOMY. HALLEY HANDS TRIGGER FINGER Past Anesthesia/Blood Transfusion Reactions: Postoperative Nausea & Vomiting (PONV) Past Psychological History: Anxiety, Depression Smoking Status: Never smoker Past Alcohol Use History: Rare Past Drug Use History: None Reported - Past Family History Mother Family Medical History: No Reported History General Exam Limitations: no limitations General appearance: alert, in no apparent distress Head exam: Present: normocephalic Eye exam: Present: normal appearance, PERRL, EOMI ENT exam: Present: normal oropharynx Neck exam: Present: normal inspection. Absent: tenderness Respiratory exam: Present: normal lung sounds bilaterally Cardiovascular Exam: Present: regular rate, normal rhythm GI/Abdominal exam: Present: soft. Absent: tenderness Extremities exam: Present: normal inspection Neurological exam: Present: alert, altered, CN II-XII intact. Absent: motor sensory deficit Expanded Neurological exam: Present: protecting the airway Patient oriented to: Present: person. Absent: place, time Speech: Present: fluid speech Cranial nerves: EOM's Intact: Normal Motor strength exam: RUE: 5, LUE: 5, RLE: 5, LLE: 5 Eye Response: (4) open spontaneously Motor Response: (6) obeys commands Verbal Response: (4) confused conversation Psychiatric exam: Present: normal affect, normal mood Skin exam: Present: normal color Course Vital Signs 11/20/22 12:21 Temperature 98 F Pulse Rate 71 Respiratory 20 Rate Blood Pressure 150/70 O2 Sat by Pulse 98 Oximetry EKG Findings - EKG Results: EKG: interpreted by ERMD (Atrial paced rhythm), normal axis, normal QRS, normal ST/T Medical Decision Making - Medical Decision Making Was pt. sent in by a medical professional or institution (, QUIQUE, CURB ATTENDANT, urgent care, hospital, or correction...) When possible be specific @ -No Did you speak to anyone other than the patient for history (EMS, parent, family, police, friend...)? What history was obtained from this source @ -Sister's present and provides majority of history as patient has advanced dementia Did you review nursing and triage notes (agree or disagree)? Why? @ -I reviewed and agree with nursing and triage notes Were old charts reviewed (outside hosp., previous admission, EMS record, old EKG, old radiological studies, urgent care reports/EKG's, correction records)? Report findings @ -No old charts were reviewed Differential Diagnosis (chest pain, altered mental status, abdominal pain women, abdominal pain men, vaginal bleeding, weakness, fever, dyspnea, syncope, headache, dizziness, GI bleed, back pain, seizure, CVA, palpatations, mental health)? @ -Differential Altered Mental Status: Hypoglycemia, DKA, hypercapnia, ETOH, overdose, CO poisoning, trauma, myxedema coma, HTN encephalopathy, infection, encephalitis, psychosis, intercranial hemorrhage, hepatic encephalopathy, meningitis, CVA, this is not meant to be an all-inclusive list EKG interpreted by me (3pts min.). @ -As above X-rays interpreted by me (1pt min.). @ -Chest x-ray shows no acute process CT interpreted by me (1pt min.). @ -Report reviewed U/S interpreted by me (1pt. min.). @ -None done What testing was considered but not performed or refused? (CT, X-rays, U/S, labs)? Why? @ -None What meds were considered but not given or refused? Why? @ -None Did you discuss the management of the patient with other professionals (professionals i.e. QUIQUE Jama, CURB ATTENDANT, lab, RT, psych nurse, psychosocial rehabilitation counselor, telephone operators supervisor, teacher, credit risk officer, casework manager)? Give summary @ -Case discussed with Dr. Parmar with [facility] who will admit covering Dr. Thomson Was smoking cessation discussed for >3mins.? @ -No Was critical care preformed (if so, how long)? @ -No Were there social determinants of health that impacted care today? How? (Homelessness, low income, unemployed, alcoholism, drug addiction, transportation, low edu. Level, literacy, decrease access to med. care, correction, r ehab)? @ -No Was there de-escalation of care discussed even if they declined (Discuss DNR or withdrawal of care, Hospice)? DNR status @ -No What co-morbidities impacted this encounter? (DM, HTN, Smoking, COPD, CAD, Cancer, CVA, ARF, Chemo, Hep., AIDS, mental health diagnosis, sleep apnea, morbid obesity)? @ -None Was patient admitted / discharged? Hospital course, mention meds given and route, prescriptions, significant lab abnormalities, going to OR and other pertinent info. @ -Patient reevaluated. Patient and family updated. Patient will be admitted with social work consult for possible placement and further evaluation for altered mental status Undiagnosed new problem with uncertain prognosis? @ -No Drug Therapy requiring intensive monitoring for toxicity (Heparin, Nitro, Insulin, Cardizem)? @ -No Were any procedures done? @ -No Diagnosis/symptom? @ -Altered mental status Acute, or Chronic, or Acute on Chronic? @ -Acute Uncomplicated (without systemic symptoms) or Complicated (systemic symptoms)? @ -default Side effects of treatment? @ -No Exacerbation, Progression, or Severe Exacerbation? @ -No Poses a threat to life or bodily function? How? (Chest pain, [place], [place], pneumonia, PE, COPD, DKA, ARF, appy, cholecystitis, CVA, Diverticulitis, Homicidal, Suicidal, threat to staff... and all critical care pts) @ -No - Lab Data Result diagrams: 11/20/22 13:01 11/20/22 13:01 Lab Results 11/20/22 11/20/22 11/20/22 Range/Units 13:01 13:01 13:01 WBC 6.6 (3.8-10.6) k/uL RBC 3.75 L (3.80-5.40) m/uL Hgb 11.5 (11.4-16.0) gm/dL Hct 34.7 (34.0-46.0) % MCV 92.3 (80.0-100.0) fL MCH 30.6 (25.0-35.0) pg MCHC 33.1 (31.0-37.0) g/dL RDW 16.3 H (11.5-15.5) % Plt Count 251 (150-450) k/uL MPV 7.3 Neutrophils % 63 % Lymphocytes % 27 % Monocytes % 7 % Eosinophils % 1 % Basophils % 0 % Neutrophils # 4.1 (1.3-7.7) k/uL Lymphocytes # 1.8 (1.0-4.8) k/uL Monocytes # 0.4 (0-1.0) k/uL Eosinophils # 0.1 (0-0.7) k/uL Basophils # 0.0 (0-0.2) k/uL Anisocytosis Slight PT 10.2 (9.0-12.0) sec INR 1.0 (<1.2) APTT 23.0 (22.0-30.0) sec Sodium (137-145) mmol/L Potassium (3.5-5.1) mmol/L Chloride (98-107) mmol/L Carbon Dioxide (22-30) mmol/L Anion Gap mmol/L BUN (7-17) mg/dL Creatinine (0.52-1.04) mg/dL Est GFR (CKD-EPI)AfAm (>60 ml/min/1.73 sqM) Est GFR (CKD-EPI)NonAf (>60 ml/min/1.73 sqM) Glucose (74-99) mg/dL Calcium (8.4-10.2) mg/dL Total Bilirubin (0.2-1.3) mg/dL AST (14-36) U/L ALT (4-34) U/L Alkaline Phosphatase (38-126) U/L Troponin I (0.000-0.034) ng/mL Total Protein (6.3-8.2) g/dL Albumin (3.5-5.0) g/dL Urine Color Yellow Urine Appearance Clear (Clear) Urine pH 5.0 (5.0-8.0) Ur Specific [place] 1.019 (1.001-1.035) Urine Protein Trace H (Negative) Urine Glucose (UA) Negative (Negative) Urine Ketones Negative (Negative) Urine Blood Moderate H (Negative) Urine Nitrite Negative (Negative) Urine Bilirubin Negative (Negative) Urine Urobilinogen <2.0 (<2.0) mg/dL Ur Leukocyte Esterase Small H (Negative) Urine RBC 31 H (0-5) /hpf Urine WBC 4 (0-5) /hpf Ur Squamous Epith Cells 3 (0-4) /hpf Urine Bacteria Rare H (None) /hpf Hyaline Casts 16 H (0-2) /lpf Urine Mucus Rare H (None) /hpf Urine Opiates Screen Not Detected (NotDetected) Ur Oxycodone Screen Not Detected (NotDetected) Urine Methadone Screen Not Detected (NotDetected) Ur Propoxyphene Screen Not Detected (NotDetected) Ur Barbiturates Screen Not Detected (NotDetected) U Tricyclic Antidepress Not Detected (NotDetected) Ur Phencyclidine Scrn Not Detected (NotDetected) Ur Amphetamines Screen Not Detected (NotDetected) U Methamphetamines Scrn Not Detected (NotDetected) U Benzodiazepines Scrn Detected H (NotDetected) Urine Cocaine Screen Not Detected (NotDetected) U Marijuana (THC) Screen Not Detected (NotDetected) 11/20/22 11/20/22 Range/Units 13:01 13:01 WBC (3.8-10.6) k/uL RBC (3.80-5.40) m/uL Hgb (11.4-16.0) gm/dL Hct (34.0-46.0) % MCV (80.0-100.0) fL MCH (25.0-35.0) pg MCHC (31.0-37.0) g/dL RDW (11.5-15.5) % Plt Count (150-450) k/uL MPV Neutrophils % % Lymphocytes % % Monocytes % % Eosinophils % % Basophils % % Neutrophils # (1.3-7.7) k/uL Lymphocytes # (1.0-4.8) k/uL Monocytes # (0-1.0) k/uL Eosinophils # (0-0.7) k/uL Basophils # (0-0.2) k/uL Anisocytosis PT (9.0-12.0) sec INR (<1.2) APTT (22.0-30.0) sec Sodium 140 (137-145) mmol/L Potassium 4.6 (3.5-5.1) mmol/L Chloride 110 H (98-107) mmol/L Carbon Dioxide 21 L (22-30) mmol/L Anion Gap 9 mmol/L BUN 13 (7-17) mg/dL Creatinine 0.60 (0.52-1.04) mg/dL Est GFR (CKD-EPI)AfAm >90 (>60 ml/min/1.73 sqM) Est GFR (CKD-EPI)NonAf >90 (>60 ml/min/1.73 sqM) Glucose 91 (74-99) mg/dL Calcium 9.0 (8.4-10.2) mg/dL Total Bilirubin 0.3 (0.2-1.3) mg/dL AST 30 (14-36) U/L ALT 19 (4-34) U/L Alkaline Phosphatase 37 L (38-126) U/L Troponin I <0.012 (0.000-0.034) ng/mL Total Protein 6.5 (6.3-8.2) g/dL Albumin 3.9 (3.5-5.0) g/dL Urine Color Urine Appearance (Clear) Urine pH (5.0-8.0) Ur Specific [place] (1.001-1.035) Urine Protein (Negative) Urine Glucose (UA) (Negative) Urine Ketones (Negative) Urine Blood (Negative) Urine Nitrite (Negative) Urine Bilirubin (Negative) Urine Urobilinogen (<2.0) mg/dL Ur Leukocyte Esterase (Negative) Urine RBC (0-5) /hpf Urine WBC (0-5) /hpf Ur Squamous Epith Cells (0-4) /hpf Urine Bacteria (None) /hpf Hyaline Casts (0-2) /lpf Urine Mucus (None) /hpf Urine Opiates Screen (NotDetected) Ur Oxycodone Screen (NotDetected) Urine Methadone Screen (NotDetected) Ur Propoxyphene Screen (NotDetected) Ur Barbiturates Screen (NotDetected) U Tricyclic Antidepress (NotDetected) Ur Phencyclidine Scrn (NotDetected) Ur Amphetamines Screen (NotDetected) U Methamphetamines Scrn (NotDetected) U Benzodiazepines Scrn (NotDetected) Urine Cocaine Screen (NotDetected) U Marijuana (THC) Screen (NotDetected) Disposition Clinical Impression: Altered mental status Disposition: ADMITTED IP TO THIS HOSP Is patient prescribed a controlled substance at d/c from ED?: No Referrals: Darron Thomson MD [Primary Care Provider] - 1-2 days Time of Disposition: 15:59
--- NOTE | 2022-11-20 13:28 | CT ---
EXAMINATION TYPE: CT brain wo con CT DLP: 1166.4 mGycm, Automated exposure control for dose reduction was used. DATE OF EXAM: 11/20/2022 1:06 PM COMPARISON: None. CLINICAL INDICATION:Female, 72 years old with history of Altered mental status, TECHNIQUE: Brain: Axial CT images of the brain were obtained with coronal and sagittal reformats created and rev iewed. Contrast used: None. Oral contrast used: None. FINDINGS: Brain: Extra-axial spaces: No abnormal extra-axial fluid collections. Ventricular system: Within normal limits Cerebral parenchyma: Remote left frontal lobe and left occipital lobe injuries. No acute intraparench ymal hemorrhage or mass effect. The tse-white junction is well differentiated. Cerebellum: Unremarkable. Mass effect: No evidence of midline shift. Intracranial vasculature: Atherosclerotic calcifications of the intracranial vessels. Soft tissues: Normal. Calvarium/osseous structures: No depressed skull fracture. Nonfusion of the posterior arch of C1. Paranasal sinuses and mastoid air cells: Mild scattered paranasal sinus disease. Visualized orbits: Orbital contents are intact. IMPRESSION: 1. No acute intracranial process. 2. Remote left frontal and left occipital lobe injuries along with nonspecific white matter changes l ikely secondary to chronic microangiopathy.
--- NOTE | 2022-11-20 13:35 | XR ---
EXAMINATION TYPE: XR chest 2V DATE OF EXAM: 11/20/2022 1:09 PM COMPARISON: Chest radiographs from 07/02/2019 TECHNIQUE: XR chest 2V Frontal and lateral views of the chest. CLINICAL INDICATION:Female, 72 years old with history of altered mental status; FINDINGS: Lungs/Pleura: Bibasilar atelectasis. No evidence for pneumothorax, pleural effusion or focal consolid ation. Pulmonary vascularity: Unremarkable. Heart/mediastinum: Cardiomediastinal silhouette is enlarged and stable. Two lead cardiac conduction d evice overlying the left hemithorax with lead tips projecting over the right ventricle and right atri um. Musculoskeletal: No acute osseous pathology. IMPRESSION: Low lung volumes with a generalized hazy appearance which could represent atelectasis versus pulmonar y edema correlate with serum BNP. COPD changes.
[2022-11-20 13:42] LABS: ALT 19 U/L (4-34); AST 30 U/L (14-36); African American GFR (CKD) >90 (>60 ml/min/1.73 sqM); Albumin 3.9 g/dL (3.5-5.0); Alkaline Phosphatase 37 U/L (38-126); Anion Gap 9 mmol/L; Blood Urea Nitrogen 13 mg/dL (7-17); Carbon Dioxide 21 mmol/L (22-30); Chloride 110 mmol/L (98-107); Glucose 91 mg/dL (74-99); Non-African American GFR(CKD) >90 (>60 ml/min/1.73 sqM); Potassium 4.6 mmol/L (3.5-5.1); Sodium 140 mmol/L (137-145); Total Bilirubin 0.3 mg/dL (0.2-1.3); Total Protein 6.5 g/dL (6.3-8.2)
[2022-11-20 13:43] LABS: Prothrombin Time 10.2 sec (9.0-12.0)
[2022-11-20 13:47] LABS: Anisocytosis Slight; Basophils % (A) 0 %; Eosinophils # (A) 0.1 k/uL (0-0.7); Eosinophils % (A) 1 %; HCT 34.7 % (34.0-46.0); HGB 11.5 gm/dL (11.4-16.0); Lymphocytes # (A) 1.8 k/uL (1.0-4.8); Lymphocytes % (A) 27 %; MCH 30.6 pg (25.0-35.0); MCHC 33.1 g/dL (31.0-37.0); MCV 92.3 fL (80.0-100.0); Mean Platelet Volume 7.3; Monocytes # (A) 0.4 k/uL (0-1.0); Monocytes % (A) 7 %; Neutrophils # (A) 4.1 k/uL (1.3-7.7); Neutrophils % (A) 63 %; Platelet Count 251 k/uL (150-450); RBC 3.75 m/uL (3.80-5.40); RDW 16.3 % (11.5-15.5); WBC 6.6 k/uL (3.8-10.6)
[2022-11-20 13:58] LABS: Appearance,Urine Clear (Clear); Bacteria,Urine Rare /hpf; Bilirubin,Urine Negative (Negative); Blood,Urine Moderate (Negative); Color,Urine Yellow; Glucose,Urine (UA) Negative (Negative); Hyaline Casts,Urine 16 /lpf (0-2); Ketones,Urine Negative (Negative); Leukocyte Esterase,Urine Small (Negative); Mucus,Urine Rare /hpf; Nitrite,Urine Negative (Negative); Protein,Urine Trace (Negative); RBC,Urine 31 /hpf (0-5); Specific Gravity,Urine 1.019 (1.001-1.035); Squamous Epithelial Cell,Urine 3 /hpf (0-4); Urobilinogen,Urine <2.0 mg/dL (<2.0); WBC,Urine 4 /hpf (0-5)
[2022-11-20 14:09] LABS: Amphetamine Screen,Urine Not Detected (NotDetected); Barbiturate Screen,Urine Not Detected (NotDetected); Benzodiazepines Screen,Urine Detected (NotDetected); Cocaine Screen,Urine Not Detected (NotDetected); Methadone Screen, Urine Not Detected (NotDetected); Opiate Screen,Urine Not Detected (NotDetected); Oxycodone Screen, Urine Not Detected (NotDetected); Phencyclidine Screen,Urine Not Detected (NotDetected); Tricyclic Antidepressant,Urine Not Detected (NotDetected); Urn Cannabinoid Scrn Not Detected (NotDetected)
[2022-11-20] MEDS ORDERED: NALOXONE 0.4 MG/ML 1 ML VIAL IV PRN (16:00)
--- NOTE | 2022-11-20 16:20 | P.HPIM ---
History of Present Illness H&P Date: 11/20/22 History of present illness; patient is a 72-year-old lady with past medical history significant for hypothyroidism, hypertension, hyperlipidemia presented to the ER because of altered mental status. Patient is not the best historian, most of the history comes from the patient's sister was at the bedside. According to her patient has been wandering aimlessly near her apartment, leaving her residence without telling anyone. Patient is getting more forgetful. Last night patient went out in rain and kept Standing outside until her neighbors noticed her and called her sister who brought her in. Because of her altered mental status, patient was brought to the ER. In the ER, initial lab work showed WBC 6.6, hemoglobin 11.5, MCV 92.3, sodium 140, potassium 4.6, chloride 110, BUN 13, creatinine 0.6 Urine drug screen was positive for benzodiazepines UA was negative for any UTI CT head negative for any acute intracranial process Patient was admitted for further evaluation and treatment REVIEW OF SYSTEMS: CONSTITUTIONAL: No fever, no malaise, no fatigue. HEENT: No recent visual problems or hearing problems. Denied any sore throat. CARDIOVASCULAR: No chest pain, orthopnea, PND, no palpitations, no syncope. PULMONARY: No shortness of breath, no cough, no hemoptysis. GASTROINTESTINAL: No diarrhea, no nausea, no vomiting, no abdominal pain. NEUROLOGICAL: No headaches, no weakness, no numbness. HEMATOLOGICAL: Denies any bleeding or petechiae. GENITOURINARY: Denies any burning micturition, frequency, or urgency. MUSCULOSKELETAL/RHEUMATOLOGICAL: Denies any joint pain, swelling, or any muscle pain. ENDOCRINE: Denies any polyuria or polydipsia. The rest of the 14-point review of systems is negative. PHYSICAL EXAMINATION: GENERAL: The patient is alert and oriented x3, not in any acute distress. Well developed, well nourished. HEENT: Pupils are round and equally reacting to light. EOMI. No scleral icterus. No conjunctival pallor. Normocephalic, atraumatic. No pharyngeal erythema. No thyromegaly. CARDIOVASCULAR: S1 and S2 present. No murmurs, rubs, or gallops. PULMONARY: Chest is clear to auscultation, no wheezing or crackles. ABDOMEN: Soft, nontender, nondistended, normoactive bowel sounds. No palpable organomegaly. MUSCULOSKELETAL: No joint swelling or deformity. EXTREMITIES: No cyanosis, clubbing, or pedal edema. NEUROLOGICAL: Gross neurological examination did not reveal any focal deficits. SKIN: No rashes. Assessment and plan Altered mental status Debility Generalized weakness Hypothyroidism Hypertension Hyperlipidemia Plan; Monitor vital signs Monitor CBC Follow-up precautions Delirium precaution Ordered vitamin B12, folate levels. Ordered TSH PT and OT evaluation Consider psych evaluation Resume home meds DVT prophylaxis: Past Medical History Past Medical History: CVA/TIA, Deep Vein Thrombosis (DVT), GERD/Reflux, Hearing Disorder / Deafness, Hyperlipidemia, Hypertension, Osteoarthritis (OA), Skin Disorder, Sleep Apnea/CPAP/BIPAP, Thyroid Disorder Additional Past Medical History / Comment(s): PERFORATED ULCER 1982. HAS EULALIA'S DISEASE. (AUTOIMMUNE DX) YEAST IN SKIN FOLDS. INTERSTITIAL CYSTITIS, NERVE STIMULATOR (RT HIP) FOR BLADDER. SHORTNESS OF BREATH EASILY. HX "BLOOD CLOT RT SHOULDER." STROKE 1995, PERIPHERAL VISION RT EYE AFFECTED. HX COLON POLYPS, Fall 06/09 "cracked pelvis", wound -abdomen. HX OF SHINGLES, HAS POST SHINGLES SCALP PAIN, WEARS 02 OCCASIONALLY History of Any Multi-Drug Resistant Organisms: None Reported Past Surgical History: Back Surgery, Bowel Resection, Heart Catheterization, Hysterectomy, Joint Replacement Additional Past Surgical History / Comment(s): TOTAL RT HIP. BLADDER NERVE STIM. ULCER REPAIR. SPINAL FUSION, LAMINECTOMY. HALLEY HANDS TRIGGER FINGER Past Anesthesia/Blood Transfusion Reactions: Postoperative Nausea & Vomiting (PONV) Past Psychological History: Anxiety, Depression Smoking Status: Never smoker Past Alcohol Use History: Rare Past Drug Use History: None Reported - Past Family History Mother Family Medical History: No Reported History Medications and Allergies Home Medications Medication Instructions Recorded Confirmed Type ALPRAZolam [Xanax] 0.125 - 0.25 mg PO DAILY PRN 01/27/16 11/19/20 History Citalopram Hydrobromide 40 mg PO DAILY 01/27/16 11/19/20 History [Citalopram HBr] Gabapentin 300 mg PO 0800 01/27/16 11/19/20 History Gabapentin 600 mg PO 1600,2200 01/27/16 11/19/20 History Levothyroxine Sodium [Synthroid] 88 mcg PO DAILY 01/27/16 11/19/20 History Loratadine 10 mg PO DAILY 01/27/16 11/19/20 History Omeprazole 20 mg PO DAILY 01/27/16 11/19/20 History Aspirin [Adult Low Dose Aspirin EC] 81 mg PO DAILY 06/12/18 11/19/20 History Calcium Carbonate [Calcium] 600 mg PO DAILY 06/12/18 11/19/20 History Cholecalciferol (Vitamin D3) 25 mcg PO DAILY 06/12/18 11/19/20 History [Vitamin D3] Turmeric Root Extract [Turmeric] 500 mg PO DAILY 06/12/18 11/19/20 History Losartan Potassium 50 mg PO QAM 06/29/18 11/19/20 History Ferrous Sulfate [Feosol] 325 mg PO DAILY 07/05/19 11/19/20 History HYDROcodone/APAP 7.5-325MG [[place] 1 tab PO TID PRN 07/05/19 11/19/20 History 7.5-325] Loperamide [Imodium] 2 mg PO QID PRN 07/05/19 11/19/20 History Atorvastatin [Lipitor] 20 mg PO DAILY 11/17/20 11/19/20 History Baclofen [Lioresal] 10 mg PO 1600,2200 11/17/20 11/19/20 History Inulin/Chromium Picolinate [Fiber 2 each PO DAILY 11/17/20 11/19/20 History Gummies Chew] Magnesium Oxide [Mag-Ox] 400 mg PO HS 11/17/20 11/19/20 History Melatonin [Melatonin ER] 10 mg PO HS 11/17/20 11/19/20 History Neuriva 2 cap PO HS 11/17/20 11/19/20 History lidocaine HCL [Aspercreme] 1 applic TOPICAL DIRECTED PRN 11/17/20 11/19/20 History Fluticasone Nasal [place] [Flonase 1 - 2 spr EA NOSTRIL DIRECTED 11/18/20 11/19/20 History Nasal [place]] PRN Ipratropium [place] 0.06%Nasal 2 spray EA NOSTRIL BID 11/18/20 11/19/20 History [Atrovent Nasal 0.06%] Allergies Allergy/AdvReac Type Severity Reaction Status Date / Time meperidine HCl [From Demerol] Allergy Severe Nausea Verified 11/20/22 16:07 Iodine and Iodide Containing Allergy Rash/Hives Verified 11/20/22 16:07 Produc Penicillins Allergy Rash/Hives Verified 11/20/22 16:07 povidone-iodine Allergy CRUSTING Verified 11/20/22 16:07 [From Betadine] Rash/Hives soap [From Betadine] Allergy CRUSTING Verified 11/20/22 16:07 Rash/Hives albuterol AdvReac Rapid Verified 11/20/22 16:07 Heart Rate lisinopril AdvReac Cough Verified 11/20/22 16:07 Physical Exam Vitals: Vital Signs Temp Pulse Resp BP Pulse Ox 11/20/22 12:21 98 F 71 20 150/70 98 Intake and Output 11/20/22 11/20/22 11/20/22 06:59 14:59 22:59 Other: Weight 75.296 kg Results CBC & Chem 7: 11/20/22 13:01 11/20/22 13:01 Labs: Abnormal Lab Results - Last 24 Hours (Table) 11/20/22 11/20/22 11/20/22 Range/Units 13:01 13:01 13:01 RBC 3.75 L (3.80-5.40) m/uL RDW 16.3 H (11.5-15.5) % Chloride 110 H (98-107) mmol/L Carbon Dioxide 21 L (22-30) mmol/L Alkaline Phosphatase 37 L (38-126) U/L Urine Protein Trace H (Negative) Urine Blood Moderate H (Negative) Ur Leukocyte Esterase Small H (Negative) Urine RBC 31 H (0-5) /hpf Urine Bacteria Rare H (None) /hpf Hyaline Casts 16 H (0-2) /lpf Urine Mucus Rare H (None) /hpf U Benzodiazepines Scrn Detected H (NotDetected)
[2022-11-20] MEDS: FAMOTIDINE 20 MG TAB PO SCH (21:41)
[2022-11-20 21:56] LABS: Glucose,Whole Blood 113 mg/dL (70-110)
[2022-11-21] MEDS: LEVOTHYROXINE 88 MCG TAB PO SCH (06:26)
[2022-11-21 08:37] LABS: Basophils % (A) 0 %; Eosinophils % (A) 1 %; HCT 36.4 % (34.0-46.0); HGB 11.9 gm/dL (11.4-16.0); Lymphocytes # (A) 1.1 k/uL (1.0-4.8); Lymphocytes % (A) 15 %; MCH 30.5 pg (25.0-35.0); MCHC 32.8 g/dL (31.0-37.0); MCV 93.2 fL (80.0-100.0); Mean Platelet Volume 7.1; Monocytes # (A) 0.4 k/uL (0-1.0); Monocytes % (A) 6 %; Neutrophils # (A) 5.4 k/uL (1.3-7.7); Neutrophils % (A) 77 %; Platelet Count 228 k/uL (150-450); RDW 15.8 % (11.5-15.5); WBC 7.1 k/uL (3.8-10.6)
[2022-11-21 08:50] LABS: African American GFR (CKD) >90 (>60 ml/min/1.73 sqM); Anion Gap 6 mmol/L; Blood Urea Nitrogen 9 mg/dL (7-17); Calcium 8.8 mg/dL (8.4-10.2); Carbon Dioxide 26 mmol/L (22-30); Chloride 107 mmol/L (98-107); Glucose 93 mg/dL (74-99); Non-African American GFR(CKD) >90 (>60 ml/min/1.73 sqM); Potassium 4.9 mmol/L (3.5-5.1); Sodium 139 mmol/L (137-145)
[2022-11-21] MEDS: APIXABAN 5 MG TAB PO SCH ×2 (09:30→21:36)
[2022-11-21] MEDS: LOSARTAN 25 MG TAB PO SCH (09:30)
[2022-11-21] MEDS: FAMOTIDINE 20 MG TAB PO SCH ×2 (09:30→21:36)
[2022-11-21] MEDS: ATORVASTATIN 20 MG TAB PO SCH (09:30)
[2022-11-21] MEDS: ARIPiprazole 2 MG TAB PO SCH (09:30)
[2022-11-21] MEDS: METOPROLOL SUCCINATE (ER) 25 MG TAB.ER.24H PO SCH (09:31)
[2022-11-21] MEDS: CITALOPRAM HYDROBROMIDE 20 MG TAB PO SCH (09:31)
[2022-11-21] MEDS: GABAPENTIN 300 MG CAP PO SCH ×3 (09:31→21:36)
[2022-11-21] MEDS ORDERED: FAMOTIDINE 20 MG TAB PO PRN (14:32)
--- NOTE | 2022-11-21 14:33 | P.PN ---
Subjective Progress Note Date: 11/21/21 patient is a 72-year-old lady with past medical history significant for hypothyroidism, hypertension, hyperlipidemia presented to the ER because of altered mental status. Patient is not the best historian, most of the history comes from the patient's sister was at the bedside. According to her patient has been wandering aimlessly near her apartment, leaving her residence without telling anyone. Patient is getting more forgetful. Last night patient went out in rain and kept Standing outside until her neighbors noticed her and called her sister who brought her in. Because of her altered mental status, patient was brought to the ER. In the ER, initial lab work showed WBC 6.6, hemoglobin 11.5, MCV 92.3, sodium 140, potassium 4.6, chloride 110, BUN 13, creatinine 0.6 Urine drug screen was positive for benzodiazepines UA was negative for any UTI CT head negative for any acute intracranial process Patient was admitted for further evaluation and treatment 11/21. Patient seen and examined. TSH was 0.48, WBC was 7.1, hemoglobin 11.9, platelets 208, sodium 139, potassium 4.9, BUN 9, creatinine 0.5 . Denies any auditory or visual hallucinations. Denies any lightheadedness or dizziness REVIEW OF SYSTEMS: CONSTITUTIONAL: No fever, no malaise,. CARDIOVASCULAR: No chest pain, no palpitations, no syncope. PULMONARY: No shortness of breath, no cough, GASTROINTESTINAL: No diarrhea, no nausea, no vomiting, no abdominal pain. NEUROLOGICAL: No headaches, no weakness, PHYSICAL EXAMINATION: GENERAL: The patient is alert and oriented x3, not in any acute distress. Well developed, well nourished. HEENT: Pupils are round and equally reacting to light. EOMI. No scleral icterus. No conjunctival pallor. Normocephalic, atraumatic. No pharyngeal erythema. No thyromegaly. CARDIOVASCULAR: S1 and S2 present. No murmurs, rubs, or gallops. PULMONARY: Chest is clear to auscultation, no wheezing or crackles. ABDOMEN: Soft, nontender, nondistended, normoactive bowel sounds. No palpable organomegaly. MUSCULOSKELETAL: No joint swelling or deformity. EXTREMITIES: No cyanosis, clubbing, or pedal edema. NEUROLOGICAL: Gross neurological examination did not reveal any focal deficits. SKIN: No rashes. Assessment and plan Altered mental status improving Debility Generalized weakness Hypothyroidism Hypertension Hyperlipidemia Plan; Monitor vital signs Monitor CBC Monitor CMP Continue Synthroid Continue losartan Continue Eliquis PT and OT evaluation continue home meds Objective - Vital Signs Vital signs: Vital Signs Temp 98.7 F 11/21/22 07:00 Pulse 103 H 11/21/22 07:00 Resp 18 11/21/22 09:34 BP 153/75 11/21/22 07:00 Pulse Ox 97 11/21/22 07:00 FiO2 Intake & Output 11/20/22 11/21/22 11/21/22 18:59 06:59 18:59 Weight 75.296 kg Other: # Voids 2 # Bowel Movements 2 - Labs CBC & Chem 7: 11/21/22 07:56 11/21/22 07:56 Labs: Abnormal Lab Results - Last 24 Hours (Table) 11/20/22 11/20/22 11/20/22 Range/Units 13:01 13:01 13:01 RBC 3.75 L (3.80-5.40) m/uL RDW 16.3 H (11.5-15.5) % Chloride 110 H (98-107) mmol/L Carbon Dioxide 21 L (22-30) mmol/L Creatinine (0.52-1.04) mg/dL POC Glucose (mg/dL) (70-110) mg/dL Alkaline Phosphatase 37 L (38-126) U/L Urine Protein Trace H (Negative) Urine Blood Moderate H (Negative) Ur Leukocyte Esterase Small H (Negative) Urine RBC 31 H (0-5) /hpf Urine Bacteria Rare H (None) /hpf Hyaline Casts 16 H (0-2) /lpf Urine Mucus Rare H (None) /hpf U Benzodiazepines Scrn Detected H (NotDetected) 11/20/22 11/21/22 11/21/22 Range/Units 21:42 07:56 07:56 RBC (3.80-5.40) m/uL RDW 15.8 H (11.5-15.5) % Chloride (98-107) mmol/L Carbon Dioxide (22-30) mmol/L Creatinine 0.50 L (0.52-1.04) mg/dL POC Glucose (mg/dL) 113 H (70-110) mg/dL Alkaline Phosphatase (38-126) U/L Urine Protein (Negative) Urine Blood (Negative) Ur Leukocyte Esterase (Negative) Urine RBC (0-5) /hpf Urine Bacteria (None) /hpf Hyaline Casts (0-2) /lpf Urine Mucus (None) /hpf U Benzodiazepines Scrn (NotDetected)
[2022-11-21] MEDS: ACETAMINOPHEN TAB 325 MG TAB PO PRN (21:41)
[2022-11-21] MEDS: LATANOPROST 0.005% OPHTH DROPS 2.5 ML BTL BOTH EYES SCH (22:26)
[2022-11-22] MEDS: LEVOTHYROXINE 88 MCG TAB PO SCH (06:33)
[2022-11-22] MEDS: ACETAMINOPHEN TAB 325 MG TAB PO PRN ×2 (06:49→20:08)
[2022-11-22] MEDS: ARIPiprazole 2 MG TAB PO SCH (08:59)
[2022-11-22] MEDS: METOPROLOL SUCCINATE (ER) 25 MG TAB.ER.24H PO SCH (08:59)
[2022-11-22] MEDS: COLCHICINE 0.6 MG EACH PO SCH (08:59)
[2022-11-22] MEDS: LOSARTAN 25 MG TAB PO SCH (08:59)
[2022-11-22] MEDS: APIXABAN 5 MG TAB PO SCH ×2 (08:59→20:09)
[2022-11-22] MEDS: ATORVASTATIN 20 MG TAB PO SCH (08:59)
[2022-11-22] MEDS: GABAPENTIN 300 MG CAP PO SCH ×3 (09:00→20:09)
[2022-11-22] MEDS: FAMOTIDINE 20 MG TAB PO SCH ×2 (09:00→20:09)
[2022-11-22] MEDS: CITALOPRAM HYDROBROMIDE 20 MG TAB PO SCH (09:00)
[2022-11-22] MEDS: LATANOPROST 0.005% OPHTH DROPS 2.5 ML BTL BOTH EYES SCH (20:09)
--- NOTE | 2022-11-22 21:24 | P.PN ---
Subjective Progress Note Date: 11/22/22 patient is a 72-year-old lady with past medical history significant for hypothyroidism, hypertension, hyperlipidemia presented to the ER because of altered mental status. Patient is not the best historian, most of the history comes from the patient's sister was at the bedside. According to her patient has been wandering aimlessly near her apartment, leaving her residence without telling anyone. Patient is getting more forgetful. Last night patient went out in rain and kept Standing outside until her neighbors noticed her and called her sister who brought her in. Because of her altered mental status, patient was brought to the ER. In the ER, initial lab work showed WBC 6.6, hemoglobin 11.5, MCV 92.3, sodium 140, potassium 4.6, chloride 110, BUN 13, creatinine 0.6 Urine drug screen was positive for benzodiazepines UA was negative for any UTI CT head negative for any acute intracranial process Patient was admitted for further evaluation and treatment 11/21. Patient seen and examined. TSH was 0.48, WBC was 7.1, hemoglobin 11.9, platelets 208, sodium 139, potassium 4.9, BUN 9, creatinine 0.5 . Denies any auditory or visual hallucinations. Denies any lightheadedness or dizziness 11/22/2022 Patient is seen in follow-up this morning continues with some weakness and awaiting evaluation by physical therapy. Social work is consulted and planning on ECF. Patient's mentation is improving although is getting a little more forgetful of every day activities. Most likely some form of dementia or memory impairment. Patient is afebrile denies chest pain or shortness of breath. No reports of nausea or vomiting and tolerating diet. Patient will also require insurance authorization for ECF. REVIEW OF SYSTEMS: CONSTITUTIONAL: No fever, no malaise,. CARDIOVASCULAR: No chest pain, no palpitations, no syncope. PULMONARY: No shortness of breath, no cough, GASTROINTESTINAL: No diarrhea, no nausea, no vomiting, no abdominal pain. NEUROLOGICAL: No headaches, reports generalized weakness PHYSICAL EXAMINATION: GENERAL: The patient is alert and oriented x2, not in any acute distress. Well developed, well nourished. HEENT: Pupils are round and equally reacting to light. EOMI. No scleral icterus. No conjunctival pallor. Normocephalic, atraumatic. No pharyngeal erythema. No thyromegaly. CARDIOVASCULAR: S1 and S2 present. No murmurs, rubs, or gallops. PULMONARY: Chest is clear to auscultation, no wheezing or crackles. ABDOMEN: Soft, nontender, nondistended, normoactive bowel sounds. No palpable organomegaly. MUSCULOSKELETAL: No joint swelling or deformity. EXTREMITIES: No cyanosis, clubbing, or pedal edema. NEUROLOGICAL: Gross neurological examination did not reveal any focal deficits. Diffusely weak SKIN: No rashes. Assessment: Altered mental status, improving most likely secondary to dementia Debility Generalized weakness Hypothyroidism Hypertension Hyperlipidemia GI prophylaxis DVT prophylaxis Full code Plan: Recommend continue with home medications that have been reviewed and resumed Reoriented frequently and keep the windows open during the day and encouraged to increase activity as tolerated Awaiting PT/OT therapy evaluation for possible ECF Social work following and following up with family on ECF choices and will submit for insurance authorization Patient is agreeable to rehab and awaiting insurance authorization Possible discharge in the next 24 hours The impression and plan of care has been dictated by Caro Christian, Nurse Practitioner as directed. Dr. Diallo MD I have performed a history and examination and MDM of this patient, discussed the same with the dictator, and agree with the dictator's assessment and plan as written ,documented as a scribe. Based on total visit time, I have performed more than 50% of the visit. Objective - Vital Signs Vital signs: Vital Signs Temp 98.4 F 11/22/22 07:00 Pulse 60 11/22/22 07:00 Resp 16 11/22/22 07:00 BP 118/69 11/22/22 07:00 Pulse Ox 97 11/22/22 09:20 FiO2 Intake & Output 11/21/22 11/22/22 11/22/22 18:59 06:59 18:59 Intake Total 360 Balance 360 Intake: Oral 360 Other: # Voids 3 1 - Labs CBC & Chem 7: 11/21/22 07:56 11/21/22 07:56
[2022-11-22 22:11] VITALS: RESP 16
[2022-11-23] MEDS: ACETAMINOPHEN TAB 325 MG TAB PO PRN (04:47)
[2022-11-23] MEDS: LEVOTHYROXINE 88 MCG TAB PO SCH (04:48)
[2022-11-23 08:04] VITALS: BP 126/75; PULSE 60; TEMP 98
[2022-11-23] MEDS: METOPROLOL SUCCINATE (ER) 25 MG TAB.ER.24H PO SCH (08:43)
[2022-11-23] MEDS: GABAPENTIN 300 MG CAP PO SCH (08:43)
[2022-11-23] MEDS: CITALOPRAM HYDROBROMIDE 20 MG TAB PO SCH (08:43)
[2022-11-23] MEDS: ARIPiprazole 2 MG TAB PO SCH (08:43)
[2022-11-23] MEDS: LOSARTAN 25 MG TAB PO SCH (08:43)
[2022-11-23] MEDS: APIXABAN 5 MG TAB PO SCH (08:43)
[2022-11-23] MEDS: COLCHICINE 0.6 MG EACH PO SCH (08:43)
[2022-11-23] MEDS: ATORVASTATIN 20 MG TAB PO SCH (08:43)
[2022-11-23] MEDS: FAMOTIDINE 20 MG TAB PO SCH (08:43)
--- NOTE | 2022-11-25 06:47 | P.DS ---
Providers Date of admission: 11/20/22 16:03 Expected date of discharge: 11/23/22 Attending physician: Alex Parmar MD Primary care physician: Darron Thomson Hospital Course: Final diagnosis Altered mental status, improving most likely secondary to dementia Debility Generalized weakness Hypothyroidism Hypertension Hyperlipidemia GI prophylaxis DVT prophylaxis Full code Discharge disposition Patient is being discharged in a stable condition with guarded prognosis to home. Patient will follow-up with Dr. Thomson in the outpatient setting upon discharge. Total time taken is greater than 35 minutes. Hospital course This is a 72-year-old female who was recently admitted with increased confusion and altered mental status along with some generalized weakness and being closely monitored. Patient most likely has dementia with worsening has been noted to be wandering outside multiple times per family. Patient was evaluated by physical therapy and did well and did not qualify for rehab. Family given resources for possible long-term placement into a slip with sister. Patient instructed to follow-up with primary care provider on discharge. Currently no reports of chest pain, shortness of breath, or palpitations. Patient is afebrile. No reports of nausea or vomiting and patient is tolerating diet. Patient will be discharged home today. Physical exam: Gen: This is a 72-year-old female who is awake, alert and oriented 2, well- developed, well-nourished HEENT: Head is atraumatic, normocephalic. Pupils equal, round. Sclerae is anicteric. NECK: Supple. No JVD. No lymphadenopathy. No thyromegaly. LUNGS: Clear to auscultation. No wheezes or rhonchi. No intercostal retractions. HEART: Regular rate and rhythm. No murmur. ABDOMEN: Soft. Bowel sounds are present. No masses. No tenderness. EXTREMITIES: No pedal edema. No calf tenderness. NEUROLOGICAL: Patient is awake, alert and oriented x3. Cranial nerves 2 through 12 are grossly intact. Please refer to medication reconciliation sheet for a list of medications. The impression and plan of care has been dictated by Caro Christian, Nurse Practitioner as directed. Dr. Diallo MD I have performed a history and examination and MDM of this patient, discussed the same with the dictator, and agree with the dictator's assessment and plan as written ,documented as a scribe. Based on total visit time, I have performed more than 50% of the visit. Patient Condition at Discharge: Good Plan - Discharge Summary New Discharge Prescriptions: New Acetaminophen Tab [Tylenol] 650 mg PO Q6HR PRN tab PRN Reason: Mild Pain Or Fever > 100.5 Continue Gabapentin 300 mg PO DAILY@0800 Gabapentin 600 mg PO BID@1600,2200 Levothyroxine Sodium [Synthroid] 88 mcg PO DAILY Atorvastatin [Lipitor] 20 mg PO DAILY Famotidine [Pepcid] 20 mg PO HS PRN PRN Reason: Gi Upset Apixaban [Eliquis] 5 mg PO BID Citalopram Hydrobromide [CeleXA] 40 mg PO DAILY Latanoprost/Pf [Latanoprost 0.005% Eye Drop] 1 drop BOTH EYES HS ARIPiprazole [Abilify] 2 mg PO DAILY Metoprolol Succinate (ER) [Toprol XL] 25 mg PO DAILY Losartan [Cozaar] 25 mg PO DAILY Colchicine [Colcrys] 0.6 mg PO DAILY Discontinued Baclofen [Lioresal] 10 mg PO BID hydroCHLOROthiazide [Hydrodiuril] 12.5 - 25 mg PO DAILY Discharge Medication List Gabapentin 300 mg PO DAILY@0800 01/27/16 [History] Gabapentin 600 mg PO BID@1600,2200 01/27/16 [History] Levothyroxine Sodium [Synthroid] 88 mcg PO DAILY 01/27/16 [History] Atorvastatin [Lipitor] 20 mg PO DAILY 11/17/20 [History] ARIPiprazole [Abilify] 2 mg PO DAILY 11/20/22 [History] Apixaban [Eliquis] 5 mg PO BID 11/20/22 [History] Citalopram Hydrobromide [CeleXA] 40 mg PO DAILY 11/20/22 [History] Colchicine [Colcrys] 0.6 mg PO DAILY 11/20/22 [History] Famotidine [Pepcid] 20 mg PO HS PRN 11/20/22 [History] Latanoprost/Pf [Latanoprost 0.005% Eye Drop] 1 drop BOTH EYES HS 11/20/22 [History] Losartan [Cozaar] 25 mg PO DAILY 11/20/22 [History] Metoprolol Succinate (ER) [Toprol XL] 25 mg PO DAILY 11/20/22 [History] Acetaminophen Tab [Tylenol] 650 mg PO Q6HR PRN tab 11/23/22 [Rx] Follow up Appointment(s)/Referral(s): Darron Thomson MD [Primary Care Provider] - 1-2 days Activity/Diet/Wound Care/Special Instructions: Activity Limited until follow-up Follow-up with primary care provider on discharge Continue taking medications as prescribed [email or web address]/medicaid/portalhome/[email or web address]/apply [place] [facility] ([facility]) [address] [facility] [place] [address] ( [facility] [address] [place] [address] ( [facility] [address] [place] [address] [facility] [address] [place] [address] [facility] [address] [place] [address] ( [facility] [address] [place] [address] [facility] [address] [place] [address] [facility] [address] [place] [address] [facility] [address] [place] [address] ( [facility] [address] [place] [address] [place] [address] [place] [address] [facility] [address] [place] [address] [facility] [place] [address] [place] [address] [facility] [address] [place], [place] [id number] [facility] [address] [place] [address] [facility] [address] [place] [address] (cell) [place] [facility] [address] [place] [address] ( [facility] ([facility] funded, part of [employer], a [employer]) [address] [place] [address] [facility] [address] [place] [address] [facility] [address] [place] [address] [place] [address] [facility] [place] [address] Ivan Barbosa [facility] [address] [place] [address] [place] [facility] [address] [place] [address] [facility], [facility] [address] [place] [address] (cell) [facility] [address] [place] [address] [facility] [place] [address] [facility] [place] [address] [facility] [address] [place] [address] [address] [facility] (Also does Home Care) [address] [place] [address] [facility] (Also does Home Care) [address] [place], [address] Arnie [facility] [address] [place] [address] [facility] [address] [place] [address] [facility] [address] [place] [address] [facility] [address] [place] [address] [place] [address] [place] [address] [place] [address] [facility] [address] [place] [address] [facility] [address] [place] [address] [facility] [address] [place] [address] [facility] [address] [facility] [place] [address] [place] [address] [facility] [address] [place] [address] [facility] [address] [place] [address] [facility] [address] [place] [place] [facility] [place] [address] [place] [address] [facility] [place] [address] [facility] [address] [place] [address] [facility], [facility] [address] [place] [address] [facility] [address] [place] [address] [employer] [address] [place] [address] [facility] [address] [place] [address] ( Discharge/Stand Alone Forms: Who Do I Call?, Community Resources, Help In The Home Discharge Disposition: HOME WITH HOME HEALTH SERVICES
== END 2022-11-23 15:14 | disposition home health service (06) ==
LOC: EC 12:15 → 5NMEDONC 16:03 → 6NMEDSUR 17:33
PROVIDERS: ADMIT Internal Medicine; ATTEND Internal Medicine
DX: R41.82 Altered mental status, unspecified (principal); R53.81 Other malaise; R53.1 Weakness; K21.9 Gastro-esophageal reflux disease without esophagitis; E78.5 Hyperlipidemia, unspecified; I10 Essential (primary) hypertension; G47.30 Sleep apnea, unspecified; F41.9 Anxiety disorder, unspecified; F32.A Depression, unspecified; E03.9 Hypothyroidism, unspecified; Z86.73 Personal history of transient ischemic attack (TIA), and cerebral infarction without residual deficits; Z86.718 Personal history of other venous thrombosis and embolism; Z79.899 Other long term (current) drug therapy; Z79.890 Hormone replacement therapy; Z79.82 Long term (current) use of aspirin; Z88.0 Allergy status to penicillin
CPT/HCPCS: 99285; 36415; 94760 ×2; 93005; 97161; 97166; 82747; 80053; 80048; 84443; 82607; 84484; 85025 ×2; 85610; 85730; 81001; 80306; 71046; 70450; G0378 ×4